=== PATIENT | male | born 1940 | race Caucasian/White ===

== ENCOUNTER 2019-11-15 11:51 | Emergency (ER) | payer MEDICARE, BC, OTHER ==
[~2019-11-15 11:51] MED LIST: Sodium Chloride 0.9% 100 ML BAG ONE
[2019-11-15 12:43] LABS: #Basophils 0.1 thou/uL (0.0-0.2); #Eosinphils 0.1 thou/uL (0.0-0.7); #Monocytes 0.4 thou/uL (0.11-0.59); #Neutrophils 4.4 thou/uL (1.40-6.50); %Basophils 1.8 % (0.0-1.0); %Eosinophils 1.3 % (0.0-10.0); %Lymphocytes 16.6 % (21.0-51.0); %Neutrophils 73.2 % (42.0-75.0); Hemoglobin 8.2 g/dL (14.0-18.0); Mean Corpuscular HGB CONC 33.9 g/dL (32.0-36.0); Mean Corpuscular Hemoglobin 32.3 pg (27.0-31.0); Mean Corpuscular Volume 95.3 fL (78.0-98.0); Mean Platelet Volume 10.7 fL (7.4-10.4); Platelet Count 27 thou/uL (130-400); RBC Distribution Width 15.1 % (11.5-14.5); Red Blood Cell (RBC) Count 2.55 mill/uL (4.70-6.10)
--- NOTE | 2019-11-15 12:44 | RAD ---
Frontal radiograph chest: 11/15/2019 COMPARISON: None HISTORY: Cough with mucus, dyspnea FINDINGS: There is pulmonary vascular congestion. Increased linear interstitial density noted in the perihilar regions and both lung bases. The cardiac silhouette is enlarged. Small bilateral pleural effusions are noted. IMPRESSION: Findings suggesting pulmonary edema. Atypical infectious pneumonitis cannot be excluded. Recommend follow-up imaging following treatment to document resolution
[2019-11-15 12:47] LABS: ALT (SGPT) 25 U/L (8-55); AST (SGOT) 65 U/L (5-34); Alkaline Phosphatase 1063 U/L (40-110); Anion Gap 17 mmol/L (10-20); BUN (Urea Nitrogen) 21 mg/dL (8.4-25.7); Bilirubin, Total 1.1 mg/dL (0.2-1.2); CK (CPK) 186 U/L (30-200); Calc. Creatinine Clearance 0 mL/min (70-130); Calcium 8.6 mg/dL (7.8-10.44); Carbon Dioxide 18 mmol/L (23-31); Chloride 94 mmol/L (98-107); Estimated GFR-MDRD 82; Globulin 2.1 g/dL (2.4-3.5); Glucose 211 mg/dL (83-110); Lipase 7 U/L (8-78); Potassium 4.4 mmol/L (3.5-5.1); Protein, Total 6.1 g/dL (5.8-8.1); Sodium 125 mmol/L (136-145)
[2019-11-15] MEDS ORDERED: Iopamidol 370 76% 125 ML VIAL FS ONE (12:55)
[2019-11-15] MEDS ORDERED: Sodium Chloride 0.9% 100 ML BAG ONE (12:55)
[2019-11-15] MEDS ORDERED: Cefepime 2 GM VIAL ONE (13:43)
--- NOTE | 2019-11-15 13:51 | CT ---
CT OF THE ABDOMEN AND PELVIS WITHOUT CONTRAST: 11/15/19 COMPARISON: 08/12/17, bone scan 08/14/17. HISTORY: Difficulty breathing for three days. Abdominal pain for three days. TECHNIQUE: Multiple contiguous axial images were obtained in a CT of the abdomen and pelvis without contrast. Sa gittal and coronal reformats were performed. FINDINGS: The gallbladder has an apparently thickened wall. No obvious calcified stones are seen in the gallbla dder. No biliary dilatation is seen. The liver, kidneys, adrenal glands, and spleen are unremarkable. There are calcifications in the tail of the pancreas which may be from chronic pancreatitis. There is a small amount of free fluid in the pelvis. There is diffuse thickening of the wall of the u rinary bladder. There are a few scattered diverticula in the colon. The small bowel is unremarkable. No abdominal or pelvic lymphadenopathy are appreciated. No enlarged inguinal lymph nodes are seen. Th ere are diffuse sclerotic lesions in the skeletal system with diffuse osseous metastatic disease. The se are new compared to the prior CT; however, these were seen on the prior bone scan. There are small bilateral pleural effusions with adjacent atelectasis. IMPRESSION: 1. No evidence of acute intra-abdominal/pelvic abnormality. 2. There is questionable thickening of the gallbladder wall. A right upper quadrant abdominal ul trasound may be necessary to evaluate for c cholecystitis. Correlate with LFTs and white blood cell c ount. 3. Small bilateral pleural effusions with adjacent atelectasis. 4. Diffuse osseous metastatic disease. POS: [facility]
--- NOTE | 2019-11-15 14:58 | CT ---
CT PULMONARY ANGIOGRAM WITH IV CONTRAST AND 3D POST PROCESSIN11/15/19 HISTORY: Dyspnea. FINDINGS: No filling defects are seen in the pulmonary arterial vasculature to suggest pulmonary embolism. The thoracic aorta is well opacified and ectatic. There is a 5 cm aneurysm of the ascending thoracic ao rta. No intimal flap is seen to suggest dissection. There are bilateral moderate sized pleural effusi ons with adjacent atelectatic changes. No pneumothoraces are seen. There are degenerative changes in the spine. There is sclerotic lesions in the skeleton consistent with osseous metastatic disease. IMPRESSION: 1. No CT evidence of thromboembolism. 2. Bilateral moderate sized pleural effusions. 3. Osseous metastatic disease. 4. A 5cm Ascending aortic aneurysm. POS: [facility]
== END 2019-11-15 14:30 | disposition short-term general hospital (02) ==
LOC: MADERS 11:51
DX: J90 Pleural effusion, not elsewhere classified (principal); D69.6 Thrombocytopenia, unspecified; I10 Essential (primary) hypertension; Z85.46 Personal history of malignant neoplasm of prostate; Z79.84 Long term (current) use of oral hypoglycemic drugs; Z79.899 Other long term (current) drug therapy; Z79.52 Long term (current) use of systemic steroids
CPT/HCPCS: 71045; 71275; 74176; 80053; 82550; 83605; 83690; 83880; 84484; 85025; 86850; 86900; 86901; 87040; 87635; 93005; 94760; 96365; J0692; J3490; Q9967; U0002